=== PATIENT | male | born 1945 | race Caucasian/White ===

== ENCOUNTER 2016-09-14 01:28 | Inpatient (IN) | payer OTHER ==
[2016-09-14 01:40] VITALS: BMI 27.1
--- NOTE | 2016-09-14 01:46 | PDOC ---
[id number] No Limitations - History of Present Illness Initial Comments: 09/14/16 02:00 The patient is a 71 year old male with significant past medical history of hypertension, hyperlipidemia, CAD, s/p stents, prostate CA, and GERD who presents to the ED with chest pain 4 hours prior to arrival. Patient reports he ate a sandwich and fell asleep. After waking up from his nap, he felt midsternal chest pain, which he describes as a pressure sensation, 7/10, and worsens with movement. He also reports upper back pain. Patient denies diaphoresis, SOB, jaw pain, shoulder pain, arm pain, nausea, and vomiting. The patient denies fever, chills, cough, abdominal pain, and diarrhea. Allergies: NKDA Social History: No alcohol, tobacco, or drug use reported. Past Surgical History: cardiac stent (2002), fx right ankle sx PCP: Dr. Martell Davey <Hermila Nogueira - Last Filed: 09/14/16 02:00> - General History Source: Patient <Jonathan Carrasco - Last Filed: 09/14/16 19:29> - General Chief Complaint: Chest Pain Stated Complaint: CHEST PAIN Time Seen by Provider: 09/14/16 01:46 Past History <Hermila Nogueira - Last Filed: 09/14/16 02:00> - Past Medical History Cancer: Yes (PROSTATE) Diabetes: No GI Disorders: No HTN: Yes Hypercholesterolemia: Yes Liver Disease: No Thyroid Disease: No - Surgical History Cardiac Surgery: Yes (2002 STENTS) Orthopedic Surgery: Yes (FX ANKLE RIGHT SX) - Immunization History Immunization Up to Date: No - Psycho/Social/Smoking Cessation Hx Anxiety: No Suicidal Ideation: No Smoking History: Never smoked Have you smoked in the past 12 months: No If you are a former smoker, when did you quit?: 25YRS Information on smoking cessation initiated: No Hx Alcohol Use: No Drug/Substance Use Hx: No Substance Use Type: Alcohol <Jonathan Carrasco - Last Filed: 09/14/16 19:29> - Past Medical History Allergies/Adverse Reactions: Allergies Allergy/AdvReac Type Severity Reaction Status Date / Time cat dander Allergy Verified 09/14/16 01:40 No Known Drug Allergies Allergy Verified 09/14/16 01:40 Home Medications: Ambulatory Orders Amlodipine Besylate 5 mg PO DAILY 10/26/15 Aspirin [Aspirin EC] 81 mg PO DAILY 10/26/15 Atenolol [Tenormin -] 25 mg PO DAILY 10/26/15 Atorvastatin Ca [Lipitor -] 80 mg PO HS 10/26/15 Cholecalciferol (Vitamin D3) [Vitamin D3] 2,000 unit PO DAILY 10/26/15 Cyanocobalamin [Vitamin B12 -] 1,000 mcg PO DAILY 10/26/15 Folic Acid 0.8 mg PO DAILY 10/26/15 Hydrochlorothiazide [Hctz -] 25 mg PO DAILY 10/26/15 Fletcher-3S/Dha/Epa/Fish Oil [Fish Oil 1,200 mg Softgel] 1 each PO DAILY 10/26/15 Losartan Potassium 100 mg PO DAILY 09/14/16 Review of Systems - Review of Systems Able to Perform ROS?: Yes Comments:: 09/14/16 02:01 CONSTITUTIONAL: Absent: fever, chills, diaphoresis, generalized weakness, malaise, loss of appetite HEENT: Absent: rhinorrhea, nasal congestion, throat pain, throat swelling, difficulty swallowing, mouth swelling, ear pain, eye pain, visual Changes CARDIOVASCULAR: +chest pain Absent: syncope, palpitations, irregular heart rate, lightheadedness , peripheral edema RESPIRATORY: Absent: cough, shortness of breath, dyspnea with exertion, orthopnea, wheezing, stridor, hemoptysis GASTROINTESTINAL: Absent: abdominal pain, abdominal distension, nausea, vomiting, diarrhea, constipation, melena, hematochezia GENITOURINARY: Absent: dysuria, frequency, urgency, hesitancy, hematuria, flank pain, genital pain MUSCULOSKELETAL: +upper back pain Absent: arthralgia, joint swelling SKIN: Absent: rash, itching, pallor NEUROLOGIC: Absent: headache, focal weakness or paresthesias, dizziness, unsteady gait, seizure, mental status changes, bladder or bowel incontinence PSYCHIATRIC: Absent: anxiety, depression, suicidal or homicidal ideation, hallucinations. <Hermila Nogueira - Last Filed: 09/14/16 02:00> *Physical Exam - Vital Signs Last Vital Signs Temp Pulse Resp BP Pulse Ox 97.7 F 92 H 18 139/89 98 09/14/16 01:36 09/14/16 01:36 09/14/16 01:36 09/14/16 01:36 09/14/16 01:36 - Physical Exam Comments: 09/14/16 02:01 GENERAL: Well developed, well nourished. Awake and alert. No acute distress. HEENT: Normocephalic, atraumatic. PERRLA, EOMI. No conjunctival pallor. Sclera are non- icteric. Moist mucous membranes. Oropharynx is clear. NECK: Supple. Full ROM. No JVD. Carotid pulses 2+ and symmetric, without bruits. No thyromegaly. No lymphadenopathy. CARDIOVASCULAR: Regular rate and rhythm. No murmurs, rubs, or gallops. Distal pulses are 2+ and symmetric. PULMONARY: No evidence of respiratory distress. Lungs clear to auscultation bilaterally. No wheezing, rales or rhonchi. ABDOMINAL: Soft. Non-tender. Non-distended. No rebound or guarding. No organomegaly. Normoactive bowel sounds. MUSCULOSKELETAL Normal range of motion at all joints. No bony deformities or tenderness. No CVA tenderness. EXTREMITIES: No cyanosis. No clubbing. No edema. No calf tenderness. SKIN: Warm and dry. Normal capillary refill. No rashes. No jaundice. NEUROLOGICAL: Alert, awake, appropriate. Cranial nerves 2-12 intact. Moving all extremities. No focal neurological deficits. PSYCHIATRIC: Cooperative. Good eye contact. Appropriate mood and affect. <Hermila Nogueira - Last Filed: 09/14/16 02:00> - Vital Signs Last Vital Signs Temp Pulse Resp BP Pulse Ox 97.7 F 92 H 18 139/89 98 09/14/16 01:36 09/14/16 01:36 09/14/16 01:36 09/14/16 01:36 09/14/16 01:36 <Jonathan Carrasco - Last Filed: 09/14/16 19:29> Heart Score/ECG Review - ECG Impressions Comment:: 09/14/16 01:53 NSR @97bpm Nonspecific ST and T wave abnormality Abnormal ECG <Hermila Nogueira - Last Filed: 09/14/16 02:00> - History History: Moderately suspicious - Electrocardiogram EKG: Non specific repolarization disturbance - Age Age: >/= 65 - Risk Factors Risk Factors Heart Score: Yes Hx Hypercholesterolemia, Yes Hx Hypertension, Yes Hx Diabetes Based on the list above the patient has:: >/=3 risk factors or Hx atherosclerotic disease - Troponin Troponin: </= normal limit - Score Heart Score - Total: 6 <Jonathan aCrrasco - Last Filed: 09/14/16 19:29> ED Treatment Course - LABORATORY CBC & Chemistry Diagram: 09/14/16 08:30 09/14/16 01:59 <Jonathan Carrasco - Last Filed: 09/14/16 19:29> Medical Decision Making - Medical Decision Making 09/14/16 19:29 Dr. Carrasco: The scribe's documentation has been prepared under my direction and personally reviewed by me in its entirery. I confirm that the note above accurately reflects all work, treatment, procedures, and medical decision making performed by me. <Jonathan Carrasco - Last Filed: 09/14/16 19:29> *DC/Admit/Observation/Transfer - Attestations Scribe Attestion: 09/14/16 02:01 Documentation prepared by Hermila Nogueira, acting as medical consultant for Jonathan Carrasco MD <Hermila Nogueira - Last Filed: 09/14/16 02:00> - Discharge Dispostion Admit: Yes <Jonathan Carrasco - Last Filed: 09/14/16 19:29> Diagnosis at time of Disposition: Chest pain Qualifiers: Chest pain type: unspecified Qualified Code(s): R07.9 - Chest pain, unspecified - Discharge Dispostion Condition at time of disposition: Fair - Referrals
[2016-09-14] MEDS ORDERED: ASPIRIN 81 MG CHEWABLE TABLETS PO ONE (01:56)
[2016-09-14] MEDS ORDERED: NITROGLYCERIN 2% OINTMENT - 1GM PACKET TD ONE ×2 (02:03→02:34)
[2016-09-14 02:24] LABS: MCH 31.6 pg (25.7-33.7); MCHC 34.3 g/dl (32.0-35.9); MEAN CELL VOLUME 92.1 fl (80-96); RDW 13.8 % (11.9-15.9); WHITE BLOOD COUNT 4.7 K/mm3 (4.0-10.0)
[2016-09-14] MEDS ORDERED: ASPIRIN 81 MG CHEWABLE TABLETS ONE (02:34)
[2016-09-14 02:40] LABS: INR 1.06 (0.82-1.09); PROTHROMBIN TIME (PATIENT) 11.7 SEC (9.98-11.88)
[2016-09-14 03:06] LABS: ALBUMIN 3.9 g/dl (3.4-5.0); ANION GAP 11 (8-16); BILIRUBIN,TOTAL 0.9 mg/dL (0.2-1.0); CALCIUM 9.1 mg/dL (8.5-10.1); CO2 31 mmol/L (21-32); CREATININE 1.1 mg/dL (0.7-1.3); GLUCOSE,RANDOM 110 mg/dL (74-106); MAGNESIUM 1.8 mg/dL (1.8-2.4); SGPT/ALT 66 U/L (12-78); TOT PROT 6.8 g/dl (6.4-8.2)
[2016-09-14 03:09] LABS: ALK PHOS 72 U/L (45-117); TROPONIN I 0.02 ng/ml (0.00-0.05)
[2016-09-14 03:11] LABS: SGOT/AST 68 U/L (15-37)
[2016-09-14] MEDS ORDERED: morphine CARPU-JECT 2 MG/1 ML DISP.SYRIN IVPUSH ONE (05:01)
[2016-09-14] MEDS ORDERED: ONDANSETRON 4 MG/2 ML VIAL IVPUSH STA (05:01)
[2016-09-14] MEDS ORDERED: IBUPROFEN 600 MG TABLET (FP) PO ONE ×2 (05:04→05:08)
[2016-09-14] MEDS ORDERED: morphine CARPU-JECT 2 MG/1 ML DISP.SYRIN IVPUSH PRN (05:36)
[2016-09-14] MEDS ORDERED: NITROGLYCERIN SUBLINGUAL 1/150 0.4 MG TAB SL PRN (05:37)
--- NOTE | 2016-09-14 05:55 | PN ---
Teaching Attending Note Name of Resident: Stephanie Genao ATTENDING PHYSICIAN STATEMENT I saw and evaluated the patient. I reviewed the resident's note and discussed the case with the resident. I agree with the resident's findings and plan as documented. SUBJECTIVE: 71 yo M with pmhx HTN, HLD, CAD s/p stents, prostate ca, GERD who presents with substernal chest pain, heavy in nature and non-radiating. No sob. No n/v/ d. No fevers or chills. Has associated back spasms. No diaphoresis OBJECTIVE: Physical: VS: Vital Signs Period Temp Pulse Resp BP Sys/Montero Pulse Ox Last 24 Hr 97.7 F 92 18 139/89 98 GEN: Nad, resting in bed, able to speak full sentences HEENT: NCAT, PERRL, Throat clear without exudates CARD: RRR S1, S2 RESP: CTAB ABD: BSX4, NTD to palpation EXT: - C/C/E CBCD WBC 4.7 K/mm3 (4.0-10.0) D 09/14/16 01:59 RBC 3.88 M/mm3 (4.00-5.60) L 09/14/16 01:59 Hgb 12.3 GM/dL (11.7-16.9) 09/14/16 01:59 Hct 35.7 % (35.4-49) 09/14/16 01:59 MCV 92.1 fl (80-96) 09/14/16 01:59 MCHC 34.3 g/dl (32.0-35.9) 09/14/16 01:59 RDW 13.8 % (11.9-15.9) 09/14/16 01:59 CMP Sodium 135 mmol/L (136-145) L 09/14/16 01:59 Potassium 4.2 mmol/L (3.5-5.1) D 09/14/16 01:59 Chloride 93 mmol/L (98-107) L 09/14/16 01:59 Carbon Dioxide 31 mmol/L (21-32) 09/14/16 01:59 Anion Gap 11 (8-16) 09/14/16 01:59 BUN 11 mg/dL (7-18) 09/14/16 01:59 Creatinine 1.1 mg/dL (0.7-1.3) D 09/14/16 01:59 Creat Clearance w eGFR > 60 (>60) 09/14/16 01:59 Random Glucose 110 mg/dL (74-106) H D 09/14/16 01:59 Calcium 9.1 mg/dL (8.5-10.1) 09/14/16 01:59 Total Bilirubin 0.9 mg/dL (0.2-1.0) D 09/14/16 01:59 AST 68 U/L (15-37) H D 09/14/16 01:59 ALT 66 U/L (12-78) D 09/14/16 01:59 Alkaline Phosphatase 72 U/L (45-117) 09/14/16 01:59 Total Protein 6.8 g/dl (6.4-8.2) 09/14/16 01:59 Albumin 3.9 g/dl (3.4-5.0) 09/14/16 01:59 CARDIAC ENZYMES Troponin I 0.02 ng/ml (0.00-0.05) 09/14/16 01:59 EKG:NSR 97. no acute ST-T changes CXR: No acute process ASSESSMENT AND PLAN: 71 yo M with pmhx of HTN, HLD, CAD s/p stents, prostate ca, GERD who presents with chest pain 1.) Chest Pain - RO ACS - Trend Trops/EKg - Echo result from outside records - HEART 5 - Cardiology consult - 02 2 L NC - Morphine/Nitro prn chest pain - C/W statin/noemí-I and BB 2.) HTN - C/W Home emds 3.) CAD s/p stents - C/W home meds 4.) HLD - Chk. Lipid panel - C/w home meds 5.) Dvt ppx - Low risk- Scd Ambulate Obs tele
--- NOTE | 2016-09-14 06:00 | HP ---
CHIEF COMPLAINT: chest pain PCP: dr. Martell Davey HISTORY OF PRESENT ILLNESS: The patient is a 71 year old male with significant past medical history of HRT, HDL, CAD, s/p 2 stents in 2002, prostate CA, and GERD who presents to the ED with chest pain that started around 10 PM last night. The pain started suddenly , it is pressure like, midsternal, 6-7/10, constant, no radiation, no alleviating/aggravating factors. He also reports upper back pain that started around the same time and he describes it as muscle spasm. He had 5 beers last evening. Usually he doesn't drink that much. He states that was seen by his fire protection inspector recently and had ECHO done a month ago that was normal. He takes his medications regularly. Patient denies palpitations, LOC, dizziness, diaphoresis, SOB, nausea, vomiting, diarrhea, constipation. He denies dysuria, urgency, increased frequency. He denies fever, chills. ER course was notable for: (1)EKG (2)troponins (3)Chest x ray PAST MEDICAL HISTORY: HRT, HDL, CAD, s/p 2 stents in 2002, prostate CA, and GERD PAST SURGICAL HISTORY: 2 stents in 2002, rotator cuff surgery Social History: Smoking:former smoker, quit 25 years ago, smoked for over 35 years 1.5 pack/day Alcohol: 1-2 times a week several beers Drugs: Denies Family History: Noncontributory Allergies: cat dander Allergy (Verified 09/14/16 01:40) No Known Drug Allergies Allergy (Verified 09/14/16 01:40) HOME MEDICATIONS: Medication Instructions Recorded Amlodipine Besylate 5 mg PO DAILY 10/26/15 Aspirin [Aspirin EC] 81 mg PO DAILY 10/26/15 Atenolol [Tenormin -] 25 mg PO DAILY 10/26/15 Atorvastatin Ca [Lipitor -] 80 mg PO HS 10/26/15 Cholecalciferol (Vitamin D3) 2,000 unit PO DAILY 10/26/15 [Vitamin D3] Cyanocobalamin [Vitamin B12 -] 1,000 mcg PO DAILY 10/26/15 Folic Acid 0.8 mg PO DAILY 10/26/15 Hydrochlorothiazide [Hctz -] 25 mg PO DAILY 10/26/15 [place]-3S/Dha/Epa/Fish Oil [Fish 1 each PO DAILY 10/26/15 Oil 1,200 mg Softgel] Amlodipine Besylate 5 mg PO 09/14/16 Losartan Potassium 100 mg PO DAILY 09/14/16 REVIEW OF SYSTEMS CONSTITUTIONAL: Absent: fever, chills, diaphoresis, generalized weakness, malaise, loss of appetite, weight change HEENT: Absent: rhinorrhea, nasal congestion, throat pain, throat swelling, difficulty swallowing, mouth swelling, ear pain, eye pain, visual changes CARDIOVASCULAR:chest pain Absent: syncope, palpitations, irregular heart rate, lightheadedness, peripheral edema RESPIRATORY: Absent: cough, shortness of breath, dyspnea with exertion, orthopnea, wheezing, stridor, hemoptysis GASTROINTESTINAL: Absent: abdominal pain, abdominal distension, nausea, vomiting, diarrhea, constipation, melena, hematochezia GENITOURINARY: Absent: dysuria, frequency, urgency, hesitancy, hematuria, flank pain, genital pain MUSCULOSKELETAL: back pain Absent: myalgia, arthralgia, joint swelling, neck pain SKIN: Absent: rash, itching, pallor HEMATOLOGIC/IMMUNOLOGIC: Absent: easy bleeding, easy bruising, lymphadenopathy, frequent infections ENDOCRINE: Absent: unexplained weight gain, unexplained weight loss, heat intolerance, cold intolerance NEUROLOGIC: Absent: headache, focal weakness or paresthesias, dizziness, unsteady gait, seizure, mental status changes, bladder or bowel incontinence PSYCHIATRIC: Absent: anxiety, depression, suicidal or homicidal ideation, hallucinations. PHYSICAL EXAMINATION Vital Signs - 24 hr 09/14/16 01:36 Temperature 97.7 F Pulse Rate 92 H Respiratory 18 Rate Blood Pressure 139/89 O2 Sat by Pulse 98 Oximetry (%) GENERAL: Awake, alert, and fully oriented, in no acute distress. HEAD: Normal with no signs of trauma. EYES: Pupils equal, round and reactive to light, extraocular movements intact, sclera anicteric, conjunctiva clear. No lid lag. EARS, NOSE, THROAT: Ears normal, nares patent, oropharynx clear without exudates. Moist mucous membranes. NECK: Normal range of motion, supple without lymphadenopathy, JVD, or masses. LUNGS: Breath sounds equal, clear to auscultation bilaterally. No wheezes, and no crackles. No accessory muscle use. HEART: Regular rate and rhythm, normal S1 and S2 without murmur, rub or gallop. ABDOMEN: Soft, nontender, not distended, normoactive bowel sounds, no guarding, no rebound, no masses. No hepatomegaly or splenomegaly. MUSCULOSKELETAL: Normal range of motion at all joints. No bony deformities or tenderness. No CVA tenderness. UPPER EXTREMITIES: 2+ pulses, warm, well-perfused. No cyanosis. No clubbing. Cap refill <2 seconds. No peripheral edema. LOWER EXTREMITIES: 2+ pulses, warm, well-perfused. No calf tenderness. No peripheral edema. NEUROLOGICAL: Cranial nerves II-XII intact. Normal speech. Gait not observed. PSYCHIATRIC: Cooperative. Good eye contact. Appropriate mood and affect. SKIN: Warm, dry, normal turgor, no rashes. Laboratory Results - last 24 hr 09/14/16 09/14/16 09/14/16 01:59 01:59 01:59 WBC 4.7 D RBC 3.88 L Hgb 12.3 Hct 35.7 MCV 92.1 MCHC 34.3 RDW 13.8 Neutrophils % Y Lymphocytes % Y INR 1.06 Sodium 135 L Potassium 4.2 D Chloride 93 L Carbon Dioxide 31 Anion Gap 11 BUN 11 Creatinine 1.1 D Creat Clearance w eGFR > 60 Random Glucose 110 H D Calcium 9.1 Magnesium 1.8 Total Bilirubin 0.9 D AST 68 H D ALT 66 D Alkaline Phosphatase 72 Troponin I 0.02 Total Protein 6.8 Albumin 3.9 ASSESSMENT/PLAN: The patient is a 71 year old male with significant past medical history of HRT, HDL, CAD, s/p 2 stents in 2002, prostate CA, and GERD who presents to the ED with chest pain that started around 10 PM last night. The pain started suddenly , it is pressure like, midsternal, 6-7/10, constant, no radiation, no alleviating/aggravating factors. He also reports upper back pain that started around the same time and he describes it as muscle spasm. He is placed on observation in telemetry for chest pain. Chest pain r/o ACS/PE HEART score 5 -Cardiac monitoring -trend troponins, first one neg. -Morphine PRN, Oxygen supplementation -Nitroglycerin 0.4 SL PRN -Aspirin 81 mg DAILY -ECHO recently done in [facility]- contact his Picker Operator for records -lipid panel HRT: -continue Amlodipine Besylate 5 mg PO DAILY, Atenolol 25 mg PO DAILY, HCTZ 25 Daily, Losartan 100 mg DAILY HDL: -continue Atorvastatin 80 mg DAILY -f/u lipid profile DVT prophylaxis; -ambulate F/E/N: No/low Na/Low sodium diet Disposition; Place in observation-telemetry Problem List - Problem (1) Chest pain Code(s): R07.9 - CHEST PAIN, UNSPECIFIED Qualifiers: Chest pain type: unspecified Qualified Code(s): R07.9 - Chest pain, unspecified Visit type - Emergency Visit Emergency Visit: Yes Care time: The patient presented to the Emergency Department on the above date and was hospitalized for further evaluation of their emergent condition. - New Patient This patient is new to me today: Yes Date on this admission: 09/14/16 - Critical Care Critical Care patient: No
[2016-09-14] MEDS ORDERED: ONDANSETRON 4 MG/2 ML VIAL ONE (06:43)
[2016-09-14] MEDS ORDERED: morphine CARPU-JECT 4 MG/1 ML DISP.SYRIN ONE (06:43)
[2016-09-14 06:53] LABS: PLATELET COMMENT2 NO CLOTTING DETECTED; PLATELET COUNT 72 K/MM3 (134-434)
[2016-09-14] MEDS ORDERED: CLOPIDOGREL BISULFATE 300 MG TABLET ONE (08:46)
[2016-09-14] MEDS ORDERED: HEPARIN INFUSION - 500 ML IVPB ONE (08:47)
[2016-09-14] MEDS ORDERED: HEPARIN NA (PORCINE) 5,000 UNITS/ML 1ML VIAL ONE (08:47)
--- NOTE | 2016-09-14 09:06 | PN ---
Progress Note (short form) - Note Progress Note: Cardiology Consult Dictated 71M h/o CAD s/p PCI x 2 '03 w/ residual CAD, prostate CA, HTN present to ER with new onset substernal chest pressure and ST changes laterally with no prior comparison. Pain largely relieved with nitro- concern for unstable angina. REC: 1. Echo 2. Tele 3. Serial enzymes and ECG 4. Agree w/ ASA, will start Plavix. Will hold heparin for now as Platelets 72K (?chronic) Repeat CBC; follow platelet count closely. 5. Will touch base w/ his private bottling line operator as I am inclined to transfer him for cardiac cath. He reports having a negative stress test in 2016, but current sx concerning for new onset angina.
[2016-09-14 09:51] LABS: MCH 32.6 pg (25.7-33.7); MCHC 35.6 g/dl (32.0-35.9); MEAN CELL VOLUME 91.7 fl (80-96); MEAN PLT VOLUME 7.2 fl (7.5-11.1); PLATELET COUNT 54 K/MM3 (134-434); RDW 13.3 % (11.9-15.9); WHITE BLOOD COUNT 4.5 K/mm3 (4.0-10.0)
[2016-09-14 10:00] LABS: TROPONIN I 0.03 ng/ml (0.00-0.05)
[2016-09-14] MEDS ORDERED: CYANOCOBALAMIN 1,000 MCG TABLET (FP) PO SCH (10:00)
[2016-09-14] MEDS ORDERED: ATENOLOL 25 MG TABLET (FP) PO SCH (10:00)
[2016-09-14] MEDS ORDERED: LOSARTAN POTASSIUM 50 MG TABLET (FP) PO SCH (10:00)
[2016-09-14] MEDS ORDERED: PATIENT'S OWN MEDICATION (NON-FORMULARY) (Omega-3s/Dha/Epa/Fish Oil [Fish Oil 1,200 Mg Sof PO SCH (10:00)
[2016-09-14] MEDS ORDERED: ASPIRIN COATED 81 MG TABLET.EC PO SCH (10:00)
[2016-09-14] MEDS ORDERED: HYDROCHLOROTHIAZIDE 25 MG TABLET (FP) PO SCH (10:00)
[2016-09-14] MEDS ORDERED: PATIENT'S OWN MEDICATION (NON-FORMULARY) (Folic Acid [Folic Acid] 0.8 MG) PO SCH (10:00)
[2016-09-14] MEDS ORDERED: CHOLECALCIFEROL (VITAMIN D3) 1,000 UNIT TABLET (FP) PO SCH (10:00)
[2016-09-14] MEDS ORDERED: amLODIPine BESYLATE 5 MG TABLET (FP) PO SCH (10:00)
[2016-09-14 10:10] LABS: INR 1.06 (0.82-1.09); PROTHROMBIN TIME (PATIENT) 11.7 SEC (9.98-11.88)
[2016-09-14 10:12] LABS: ACTIVATED PTT 29.5 SECONDS (26.9-34.4)
--- NOTE | 2016-09-14 10:14 | CONS ---
DATE OF CONSULTATION: 09/14/2016 REQUESTING PHYSICIAN: Sharno Thomas MD REASON FOR CONSULTATION: Angina. CHIEF COMPLAINT: Chest pain since last evening. HISTORY OF PRESENT ILLNESS: This is a 71-year-old male with past medical history of coronary artery disease status post PCI x2 in 2002 at [facility] with known moderate residual disease managed medically, hypertension, history of prostate cancer under active surveillance, GERD, who presents to the emergency department after developing an episode of substernal chest pressure last evening. In the days prior to this, he has felt well with no angina symptoms. He describes the discomfort as pressure, tightness, associated with mild nausea. There was some back pain as well, but it was relieved promptly with nitroglycerin. At this time, his chest pain has diminished from 6 out of 10 to 1 out of 10. He denies any further back pain. He denies palpitations, PND, orthopnea, syncope. PAST MEDICAL HISTORY: Includes coronary disease, hypertension, GERD, prostate cancer. He had rotator cuff surgery one year ago. ALLERGIES: He has no known drug allergies. MEDICATIONS: Home medications include Cozaar 100 mg daily, omega-3 fatty acids , HCTZ 25 mg daily, folic acid for BPH, vitamin B12, vitamin D3, atorvastatin 80 mg at bedtime, atenolol 25 mg daily, aspirin 81 mg daily, amlodipine 5 mg daily. SOCIAL HISTORY: Patient lives alone. He never smoked. He denies alcohol or illicit drugs. FAMILY HISTORY: Noncontributory to this presentation. PHYSICAL EXAMINATION: General: In no distress. Vital signs: Afebrile, temperature 97.7, pulse 92 and regular, blood pressure on presentation 140/90, currently 113/70, O2 saturation is 96% on room air. Neck: No bruits. No JVD. Heart: S1, S2, regular, no murmurs. Chest: Clear. Abdomen: Soft, nontender. No aortic enlargement. Extremities: No edema. Pulses 2+ and symmetric bilaterally in the carotid, brachial, and radial distributions. DIAGNOSTIC DATA: His EKG showed normal sinus rhythm at 97 beats per minute with nonspecific ST changes in leads 1 and aVL; there is no prior for comparison. Chest x-ray showed no acute lung disease. LABORATORIES: White count today 4.7, hematocrit 36, platelets 72. Sodium 135, creatinine 1.1, glucose 110, AST/ALT 66. Troponin negative x1 set. IMPRESSION: This is a 71-year-old male with past medical history of coronary disease with prior percutaneous coronary intervention in 2002, who now presents to the emergency room with substernal chest pressure and non-specific ST changes concerning for unstable angina. Found to be thrombocytopenic, unclear etiology- patient unaware of prior history. RECOMMENDATIONS: 1. Echocardiogram. 2. Patient given aspirin last night. Would also give Plavix at this point for concern for unstable angina. Will hold heparin for now (thrombocytopenia), and await second cardiac enzyme prior to initiating. 3. Cycle cardiac enzymes. 4. Platelet count is 72,000, unclear if this is old or new. Will discuss with patient, his prior history, and follow platelet count closely. 5. Will call his private casino floor person to obtain further history. At this point , I am inclined to recommend repeat coronary angiography. However, an attempt to obtain further info regarding prior platelet count and etiology of thrombocytopenia will be made. If patient has diagnostic angiogram, consideration to platelet count in determining type of stent that is appropriate - if needed. ANISHA GUTIERREZ M.D. [id number] MTDD
--- NOTE | 2016-09-14 11:19 | EKG ---
Test Reason : Blood Pressure : / mmHG Vent. Rate : 097 BPM Atrial Rate : 097 BPM P-R Int : 160 ms QRS Dur : 102 ms QT Int : 354 ms P-R-T Axes : 036 -12 102 degrees QTc Int : 449 ms NORMAL SINUS RHYTHM NONSPECIFIC ST AND T WAVE ABNORMALITY ABNORMAL ECG NO PREVIOUS ECGS AVAILABLE Confirmed by JENNY MORGAN, ZE ([id number]) on 09/14/2016 11:19:25 AM Referred By: Confirmed By:ZE ALVARADO MD
[2016-09-14 13:46] VITALS: BP 118/80; PULSE 60; TEMP 98
--- NOTE | 2016-09-14 14:50 | PN ---
Progress Note (short form) - Note Progress Note: Pt has agreed for transfer to [facility] for cardiac catheterization. Will likely be transferred today for procedure tomorrow am.
--- NOTE | 2016-09-14 16:56 | DS ---
Physical Exam: SUBJECTIVE: Patient seen and examined at bedside. No active chest pain. Denies sob, n/v, abd pain, headache, dizziness, fever, chills./ OBJECTIVE: Vital Signs Period Temp Pulse Resp BP Sys/Montero Pulse Ox Last 24 Hr 98 F 60 14 118/80 100 PHYSICAL EXAM GENERAL: The patient is awake, alert, oriented to time and person, not in cardiopulmonary distress NECK: no JVD LUNGS: CTAB HEART: RRR, S1, S2 without murmur, rub or gallop. ABDOMEN: Soft, nontender, nondistended, normoactive bowel sounds, no guarding, no rebound, no hepatosplenomegaly, no masses. EXTREMITIES: no edema. LABS Laboratory Results - last 24 hr 09/14/16 14:20 Troponin I 0.02 D HOSPITAL COURSE: Date of Admission:09/14/16 The patient is a 71 year old male with significant past medical history of HRT, HDL, CAD, s/p 2 stents in 2002, prostate CA, and GERD who was admitted to observation unit for chest pain. In the ED, his CXR and EKG were unremarkable and 3 sets of troponins were within normal limits. He's now chest pain free. Per patient, his recent ECHO and stress were normal. After being evaluated by mainframe consultant, decision was made for cardiac cath given patient's extensive cardiac history and clinical presentation. He'll be transferred from [facility] to another facility for the procedure tomorrow. Date of Discharge: 09/14/16 Minutes to complete discharge: 45 Discharge Summary Reason For Visit: CHEST PAIN Current Active Problems Chest pain (Acute) Condition: Fair - Instructions Referrals: Martell Davey MD, [Primary Care Provider] - - Home Medications Comprehensive Discharge Medication List: Ambulatory Orders Amlodipine Besylate 5 mg PO DAILY 10/26/15 Aspirin [Aspirin EC] 81 mg PO DAILY 10/26/15 Atenolol [Tenormin -] 25 mg PO DAILY 10/26/15 Atorvastatin Ca [Lipitor -] 80 mg PO HS 10/26/15 Cholecalciferol (Vitamin D3) [Vitamin D3] 2,000 unit PO DAILY 10/26/15 Cyanocobalamin [Vitamin B12 -] 1,000 mcg PO DAILY 10/26/15 Folic Acid 0.8 mg PO DAILY 10/26/15 Hydrochlorothiazide [Hctz -] 25 mg PO DAILY 10/26/15 [place]-3S/Dha/Epa/Fish Oil [Fish Oil 1,200 mg Softgel] 1 each PO DAILY 10/26/15 Losartan Potassium 100 mg PO DAILY 09/14/16 This patient is new to me today: Yes Date on this admission: 09/14/16 Emergency Visit: Yes ED Registration Date: 09/14/16 Care time: The patient presented to the Emergency Department on the above date and was hospitalized for further evaluation of their emergent condition. Critical Care patient: No - Discharge Referral Referred to [facility] Med P.C.: No
[2016-09-14] MEDS ORDERED: ATORVASTATIN CA 80 MG TABLET (FP) PO SCH (22:00)
== END 2016-09-14 19:03 | disposition short-term general hospital (02) | DRG 303 ==
LOC: JER 01:28 → JERBED 05:09 → OBSVTOIN 09:48
PROVIDERS: ADMIT Internal Medicine; ATTEND Internal Medicine
DX: I25.110 Atherosclerotic heart disease of native coronary artery with unstable angina pectoris (principal); I10 Essential (primary) hypertension; E78.5 Hyperlipidemia, unspecified; K21.9 Gastro-esophageal reflux disease without esophagitis; C61 Malignant neoplasm of prostate; Z87.891 Personal history of nicotine dependence; D69.6 Thrombocytopenia, unspecified
CPT/HCPCS: 36415; 71010-TC; 80053; 80061; 82550; 82553; 83721; 83735; 84484; 85025; 85027; 85610; 85730; 93005; 93010; 93306-TC; 99282-25; G0378